=== PATIENT | female | born 1975 | race Caucasian/White ===

== ENCOUNTER 2018-06-08 02:12 | Emergency (ER) | END 2018-06-08 05:29 | disposition home or self-care (01) ==

== ENCOUNTER 2018-06-25 03:56 | Emergency (ER) | END 2018-06-25 05:01 | disposition home or self-care (01) ==

== ENCOUNTER 2018-06-25 05:03 | Emergency (ER) | END 2018-06-25 07:03 | disposition home or self-care (01) ==

== ENCOUNTER 2018-09-03 02:15 | Emergency (ER) | END 2018-09-03 05:17 | disposition home or self-care (01) ==

== ENCOUNTER 2018-12-29 12:38 | Emergency (ER) | payer MEDICAID ==
[~2018-12-29] VITALS: Ht 142.2 cm; Wt 87.5 kg
[~2018-12-29 12:38] MED LIST: HYDR-3980 PO; IBUP-1542 PO; LORA1TAB PO; ONDA4TAB14 PO; OXYC-209 PO
[2018-12-29 13:34] VITALS: Ht 142.2 cm; Wt 87.5 kg
[2018-12-29] MEDS ORDERED: AMOX500C2 PO (15:39)
[2018-12-29] MEDS ORDERED: IBUP-1542 PO (15:39)
--- NOTE | 2018-12-29 15:43 | ERD ---
ER Documentation Chief Complaint Chief Complaint ST, VU X 2 WEEKS HPI 43-year-old female presents with sore throat for last 2 weeks. She has right ear pain as well. She denies any fevers, cough. She was told that she has enlarged tonsils. She has right facial pain as well. She denies teeth grinding. She denies any dental pain. ROS All systems reviewed and are negative except as per history of present illness. Medications Home Meds Active Scripts Ibuprofen* (Motrin*) 600 Mg Tab, 600 MG PO Q6, #20 TAB Prov:MARQUISE ADDISON MD 12/29/18 Amoxicillin* (Amoxicillin*) 500 Mg Cap, 500 MG PO TID for 10 Days, CAP Prov:MARQUISE ADDISON MD 12/29/18 Ondansetron (Ondansetron Odt) 4 Mg Tab.rapdis, 4 MG PO Q6H PRN for NAUSEA AND/OR VOMITING, #10 TAB Prov:MAYE GARCIA MD 09/03/18 Ibuprofen* (Motrin*) 600 Mg Tab, 600 MG PO Q6H PRN for PAIN AND OR ELEVATED TEMP, #30 TAB Prov:MAYE GARCIA MD 09/03/18 Lorazepam* (Lorazepam*) 1 Mg Tablet, 1 MG PO Q8H PRN for ANXIETY, #5 TAB Prov:ELLY GARAY NP 06/25/18 Ondansetron (Ondansetron Odt) 4 Mg Tab.rapdis, 4 MG PO Q6H PRN for NAUSEA AND/OR VOMITING, #10 TAB Prov:ELLY GARAY NP 06/08/18 Oxycodone HCl/Acetaminophen (Percocet 10-325 mg Tablet) 1 Each Tablet, 1 EACH PO Q6 PRN for SEVERE PAIN LEVEL 7-10, #10 TAB Prov:ELLY GARAY NP 06/08/18 Hydrocodone/Acetaminophen ([place] 10-325 Tablet) 1 Each Tablet, 1 TAB PO Q6H PRN for PAIN, #20 TAB Prov:GEO GOLDSTEIN 06/07/18 Allergies Allergies: Coded Allergies: No Known Allergy (Unverified , 06/08/18) PMhx/Soc History of Surgery: Yes (c/section x3) Hx Neurological Disorder: No Hx Respiratory Disorders: No Hx Cardiac Disorders: Yes (htn, dm) Hx Psychiatric Problems: No Hx Miscellaneous Medical Probl: Yes (dm) Hx Alcohol Use: No Hx Substance Use: No Hx Tobacco Use: No FmHx Family History: No diabetes, No coronary disease, No other Physical Exam Vitals Vital Signs Date Temp Pulse Resp B/P (MAP) Pulse Ox O2 O2 Flow FiO2 Time Delivery Rate 12/29/18 98.5 72 18 171/82 100 13:34 (111) Physical Exam Const: No acute distress Head: Atraumatic Eyes: Normal Conjunctiva ENT: Normal External Ears, Nose and Mouth. Gums normal. Positive tenderness in the right TMJ. Positive mild tenderness in the anterior cervical lymph nodes. No swelling, airway patent. Uvula midline. Tonsils 2+ with redness without exudate. Neck: Full range of motion. No meningismus. Resp: Clear to auscultation bilaterally Cardio: Regular rate and rhythm, no murmurs Abd: Soft, non tender, non distended. Normal bowel sounds Skin: No petechiae or rashes Back: No midline or flank tenderness Ext: No cyanosis, or edema Neur: Awake and alert Psych: Normal Mood and Affect Results 24 hrs Presents with right facial pain, sore throat, right ear pain. She is signs of TMJ. She has signs of mild lymphadenitis and possible pharyngitis as well. Patient symptoms may be due to TMJ but given the additional symptoms we will t reat empirically with amoxicillin, ibuprofen, recommendations for GI rest, primary care follow-up and return precautions. She has no evidence of airway obstruction, signs of abscess, perforation, additional concerning signs or symptoms. The patient was stable with no new complaints during the ER course. Clinically, there is no current evidence to suggest meningitis, sepsis, acute abdomen, pneumonia, stroke, acute coronary syndrome, pulmonary embolism, aortic dissection or any other emergent condition appearing to require further evaluation or hospitalization. Patient counseled regarding my diagnostic impression and care plan. Prior to discharge all questions answered. Pt agrees with treatment plan and understands strict return precautions. Pt is instructed to follow up with primary care provider within 24-48 hours. Precautionary instructions provided including instructions to return to the ER if not improving or for any worsening or changing symptoms or concerns. Departure Diagnosis: Primary Impression: Ear pain, right Additional Impression: Sore throat Condition: Stable Patient Instructions: Lymphangitis, Tmj Syndrome Additional Instructions: Cheque otro vez con small doctor primario en el proximo mcdonald or regresa para mas o nueva simptomas. MARQUISE ADDISON MD Dec 29, 2018 15:42
== END 2018-12-29 15:50 | disposition home or self-care (01) ==
LOC: FTE 12:38
DX: H92.01 Otalgia, right ear (principal); J02.9 Acute pharyngitis, unspecified; I10 Essential (primary) hypertension; E11.9 Type 2 diabetes mellitus without complications
CPT/HCPCS: 99283

== ENCOUNTER 2019-01-12 05:31 | Emergency (ER) | payer MEDICAID ==
[~2019-01-12] VITALS: Ht 157.5 cm; Wt 88.5 kg
[~2019-01-12 05:31] MED LIST changes: +AMOX500C2 PO
[2019-01-12 05:40] VITALS: Ht 157.5 cm; Wt 88.5 kg
[2019-01-12] MEDS ORDERED: KETOROLAC 30 MG INJ IV STA (06:25)
[2019-01-12] MEDS ORDERED: SOD CHLORIDE 0.9% 1,000 ML IV STA (06:25)
[2019-01-12] MEDS ORDERED: HYDR-4011 PO (08:03)
[2019-01-12 08:18] VITALS: BP 153/82; PULSE 66; RESP 18
--- NOTE | 2019-01-12 09:07 | ERD ---
ER Documentation Chief Complaint Chief Complaint VU and face pain x 3 weeks HPI 33-year-old female complaining of right-sided jaw pain with headache. Patient states is been going on intermittently for the last 6 weeks. She has pain with chewing. No trouble swallowing. No fevers. Is taking ibuprofen with mild alleviation of symptoms. Denies any vomiting. Has mild dizziness. Has also headache with no visual changes. Denies any recent traumatic injuries. Medical history is diabetes. NKDA. Surgical history . Social history denies ROS All systems reviewed and are negative except as per history of present illness. Medications Home Meds Active Scripts Hydrocodone/Acetaminophen ([place] 5-325 Tablet) 1 Each Tablet, 1 TAB PO Q6H PRN for PAIN, #7 TAB Prov:MARA ECHEVARRIA PA-C 01/12/19 Ibuprofen* (Motrin*) 600 Mg Tab, 600 MG PO Q6, #20 TAB Prov:MARQUISE ADDISON MD 12/29/18 Amoxicillin* (Amoxicillin*) 500 Mg Cap, 500 MG PO TID for 10 Days, CAP Prov:MARQUISE ADDISON MD 12/29/18 Ondansetron (Ondansetron Odt) 4 Mg Tab.rapdis, 4 MG PO Q6H PRN for NAUSEA AND/OR VOMITING, #10 TAB Prov:MAYE GARCIA MD 09/03/18 Ibuprofen* (Motrin*) 600 Mg Tab, 600 MG PO Q6H PRN for PAIN AND OR ELEVATED TEMP, #30 TAB Prov:MAYE GARCIA MD 09/03/18 Lorazepam* (Lorazepam*) 1 Mg Tablet, 1 MG PO Q8H PRN for ANXIETY, #5 TAB Prov:ELLY GARAY NP 06/25/18 Ondansetron (Ondansetron Odt) 4 Mg Tab.rapdis, 4 MG PO Q6H PRN for NAUSEA AND/OR VOMITING, #10 TAB Prov:ELLY GARAY NP 06/08/18 Oxycodone HCl/Acetaminophen (Percocet 10-325 mg Tablet) 1 Each Tablet, 1 EACH PO Q6 PRN for SEVERE PAIN LEVEL 7-10, #10 TAB Prov:ELLY GARAY NP 06/08/18 Hydrocodone/Acetaminophen ([place] 10-325 Tablet) 1 Each Tablet, 1 TAB PO Q6H PRN for PAIN, #20 TAB Prov:GEO GOLDSTEIN 06/07/18 Allergies Allergies: Coded Allergies: No Known Allergy (Unverified , 06/08/18) PMhx/Soc History of Surgery: Yes (c/section x3) Hx Neurological Disorder: No Hx Respiratory Disorders: No Hx Cardiac Disorders: Yes (htn, dm) Hx Psychiatric Problems: No Hx Miscellaneous Medical Probl: Yes (dm) Hx Alcohol Use: No Hx Substance Use: No Hx Tobacco Use: No Smoking Status: Never smoker FmHx Family History: No diabetes, No coronary disease, No other Physical Exam Vitals Vital Signs Date Temp Pulse Resp B/P (MAP) Pulse Ox O2 O2 Flow FiO2 Time Delivery Rate 01/12/19 98.4 66 18 153/82 100 Room Air 08:18 (105) 01/12/19 98.3 70 16 154/88 98 05:40 (110) Physical Exam GENERAL: The patient is well-appearing, well-nourished, in no acute distress HEENT: Atraumatic. Conjunctivae are pink. Pupils equal, round, and reactive to light. There is no scleral icterus. Tympanic membranes clear bilaterally. Oropharynx clear. NECK: C-spine is soft and supple. There is no meningismus. There is no cervical lymphadenopathy. CHEST: Clear to auscultation bilaterally. There are no rales, wheezes or rhonchi. HEART: Regular rate and rhythm. No murmurs, clicks, rubs or gallops. EXTREMITIES: Equal pulses bilaterally. There is no peripheral clubbing, cyanosis or edema. No focal swelling or erythema. Full range of motion. Grossly neurovascularly intact. NEUROLOGIC: Alert and oriented. Cranial nerves II through XII intact. Motor strength in all 4 extremities with 5 out of 5 strength. Sensation grossly intact. Normal speech and gait. Babinski negative. DTR 2+ throughout. SKIN: There is no apparent rash or petechiae. The skin is warm and dry. Result Diagram: 01/12/19 0719 01/12/19 0719 Results 24 hrs Laboratory Tests Test 01/12/19 07:19 White Blood Count 5.7 10^3/ul Red Blood Count 4.15 10^6/ul Hemoglobin 11.5 g/dl Hematocrit 36.4 % Mean Corpuscular Volume 87.7 fl Mean Corpuscular Hemoglobin 27.7 pg Mean Corpuscular Hemoglobin Concent 31.6 g/dl Red Cell Distribution Width 14.4 % Platelet Count 371 10^3/UL Mean Platelet Volume 10.3 fl Immature Granulocytes % 0.200 % Neutrophils % 51.7 % Lymphocytes % 36.6 % Monocytes % 8.3 % Eosinophils % 2.8 % Basophils % 0.4 % Nucleated Red Blood Cells % 0.0 /100WBC Immature Granulocytes # 0.010 10^3/ul Neutrophils # 2.9 10^3/ul Lymphocytes # 2.1 10^3/ul Monocytes # 0.5 10^3/ul Eosinophils # 0.2 10^3/ul Basophils # 0.0 10^3/ul Nucleated Red Blood Cells # 0.0 10^3/ul Urine Color STRAW Urine Clarity CLEAR Urine pH 6.0 Urine Specific [place] 1.005 Urine Ketones NEGATIVE mg/dL Urine Nitrite NEGATIVE mg/dL Urine Bilirubin NEGATIVE mg/dL Urine Urobilinogen NEGATIVE mg/dL Urine Leukocyte Esterase NEGATIVE Dilan/ul Urine Microscopic RBC 69 /HPF Urine Microscopic WBC 7 /HPF Urine Hemoglobin 3+ mg/dL Urine Glucose NEGATIVE mg/dL Urine Total Protein NEGATIVE mg/dl Sodium Level 140 mmol/L Potassium Level 5.0 mmol/L Chloride Level 106 mmol/L Carbon Dioxide Level 26 mmol/L Anion Gap 8 Blood Urea Nitrogen 13 mg/dl Creatinine 0.53 mg/dl Est Glomerular Filtrat Rate mL/min > 60 mL/min Glucose Level 200 mg/dl Calcium Level 10.0 mg/dl Total Bilirubin 0.4 mg/dl Direct Bilirubin 0.00 mg/dl Indirect Bilirubin 0.4 mg/dl Aspartate Amino Transf (AST/SGOT) 15 IU/L Alanine Aminotransferase (ALT/SGPT) 18 IU/L Alkaline Phosphatase 59 IU/L Total Protein 8.0 g/dl Albumin 4.4 g/dl Globulin 3.60 g/dl Albumin/Globulin Ratio 1.22 Serum HCG, Qualitative NEGATIVE Current Medications Medications Dose Sig/Cornelius Start Time Status Last (Trade) Ordered Route PRN Stop Time Admin Dose Reason Admin Sodium 1,000 ml @ Q1H STAT 01/12/19 DC 01/12/19 Chloride 1,000 mls/hr IV 06:25 4/2/19 07:40 07:24 Ketorolac 30 mg ONCE STAT 01/12/19 DC 01/12/19 Tromethamine IV 06:25 01/12/19 08:11 (Toradol) 06:28 Procedures/MDM DIAGNOSTIC IMAGING REPORT Patient: KVNG SMALL : 1975 Age: 43 Sex: F MR #: [id number] DOS: 01/12/19624 Ordering MD: JERRICA ECHEVARRIA PA-C Location: [facility] Room/Bed: PROCEDURE: CT Brain without contrast. CLINICAL INDICATION: Headaches TECHNIQUE: CT scan of the brain was performed on a multidetector high- resolution CT scan. Axial imaging was obtained of the brain without contrast administration. Coronal and sagittal reformatted images were obtained from the axial source images. Standard CT scan of the head without contrast protocols were performed. The total exam CTDI equals 39.64 mGy and the total exam DLP equals 634.23 mGy- cm. One or more of the following dose reduction techniques were used: - Automated exposure control. - Adjustment of the mA and/or kV according to patient size. Use of iterative reconstruction technique. Dicom images are available COMPARISON: None. FINDINGS: The ventricular system and peripheral CSF spaces are unremarkable. No evidence of intracranial masses hemorrhages or midline shift. 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 Baker-white matter differentiation is unremarkable. Visualized paranasal sinuses and ma stoids are unremarkable. The bones of the calvarium are intact. IMPRESSION: 1. No evidence of intracranial masses hemorrhages midline shift. 2. 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 DIAGNOSTIC IMAGING REPORT Patient: VKNG SMALL : 1975 Age: 43 Sex: F MR #: [id number] DOS: 01/12/19624 Ordering MD: JERRICA ECHEVARRIA PA-C Location: E Room/Bed: PROCEDURE: XR temporomandibular joint. CLINICAL INDICATION: Jaw pain TECHNIQUE: Frontal and lateral views of the temporomandibular joints obtained in open and closed position. COMPARISON: None FINDINGS: The temporomandibular joints appear in satisfactory position on closed mouth views. There is appropriate anterior translation of both mandibular condyles on open-mouth views. Imaged bones are otherwise intact. Superficial soft tissues are unremarkable. IMPRESSION: No acute findings. MDM: 43-year-old female presenting with pain to her right jaw space. I have low suspicion for intracranial hemorrhage or neuro deficit. I have low suspicion for dental injury or infection. I have low suspicion for facial fracture disl ocation. Patient has chronic TMJ pain and is recommended to follow-up with dentist. Patient is told if symptoms change or worsen to return immediately to the ER. All questions answered at discharge Departure Diagnosis: Primary Impression: TMJ (temporomandibular joint disorder) Additional Impression: Headache Condition: Stable Patient Instructions: Self-Care for Headaches, Tmj Syndrome Referrals: [facility] YOU HAVE RECEIVED A MEDICAL SCREENING EXAM AND THE RESULTS INDICATE THAT YOU DO NOT HAVE A CONDITION THAT REQUIRES URGENT TREATMENT IN THE EMERGENCY DEPARTMENT. FURTHER EVALUATION AND TREATMENT OF YOUR CONDITION CAN WAIT UNTIL YOU ARE SEEN IN YOUR DOCTORS OFFICE WITHIN THE NEXT 1-2 DAYS. IT IS YOUR RESPONSIBILITY TO MAKE AN APPOINTMENT FOR FOLOW-UP CARE. IF YOU HAVE A PRIMARY DOCTOR --you should call your primary doctor and schedule an appointment IF YOU DO NOT HAVE A PRIMARY DOCTOR YOU CAN CALL OUR PHYSICIAN REFERRAL HOTLINE AT IF YOU CAN NOT AFFORD TO SEE A PHYSICIAN YOU CAN CHOSE FROM THE FOLLOWING [facility] [address] [facility] [address] [facility] [facility] [address] [facility] [address] [facility] [address] [facility]. [facility] [address] ([facility] walk in clinic) Additional Instructions: FOLLOW UP WITH YOUR PRIMARY CARE PHYSICIAN TOMORROW.Return to this facility if you are not improving as expected. MARA ECHEVARRIA PA-C Jan 12, 2019 09:07
== END 2019-01-12 08:30 | disposition home or self-care (01) ==
LOC: FTE 05:31
DX: M26.601 Right temporomandibular joint disorder, unspecified (principal); I10 Essential (primary) hypertension; E11.9 Type 2 diabetes mellitus without complications
CPT/HCPCS: 70330; 70450; 80053; 81001; 84703; 85025; 96361; 96374; J1885; J7030; Z7502

== ENCOUNTER 2019-02-18 08:20 | Emergency (ER) | payer MEDICAID ==
[~2019-02-18] VITALS: Ht 157.5 cm; Wt 90.1 kg
[~2019-02-18 08:20] MED LIST changes: +HYDR-4011 PO
[2019-02-18 08:22] VITALS: BP 137/88; PULSE 82; RESP 20; Ht 157.5 cm; Wt 90.1 kg
[2019-02-18] MEDS ORDERED: KETOROLAC 30 MG INJ IV STA (08:50)
[2019-02-18] MEDS ORDERED: SOD CHLORIDE 0.9% 1,000 ML IV STA (08:50)
[2019-02-18] MEDS ORDERED: ONDANSETRON 4 MG INJ IV STA (08:50)
[2019-02-18] MEDS ORDERED: NITR-58 PO (09:11)
--- NOTE | 2019-02-18 11:49 | ERD ---
ER Documentation Chief Complaint Chief Complaint Pt c/o pain urination, frequency and B flank pain X 4 days HPI 43-year-old female presenting with dysuria and urinary frequency. Patient st ates that this is been going on for the last 4 days. She has some mild suprapubic tenderness and urinary frequency. There is burning with urination. Patient had noted some mild hematuria. No fevers. Has not taken medications for symptoms. Medical history is diabetes [id number]. Hypertension. NKDA. Surgical history . Social history denies ROS All systems reviewed and are negative except as per history of present illness. Medications Home Meds Active Scripts Nitrofurantoin Monohyd Macrocr* (Macrobid*) 100 Mg Capsr, 100 MG PO BID for 14 Days, CAP Prov:MARA ECHEVARRIA PA-C 02/18/19 Hydrocodone/Acetaminophen ([place] 5-325 Tablet) 1 Each Tablet, 1 TAB PO Q6H PRN for PAIN, #7 TAB Prov:MARA ECHEVARRIA PA-C 01/12/19 Ibuprofen* (Motrin*) 600 Mg Tab, 600 MG PO Q6, #20 TAB Prov:MARQUISE ADDISON MD 12/29/18 Amoxicillin* (Amoxicillin*) 500 Mg Cap, 500 MG PO TID for 10 Days, CAP Prov:MARQUISE ADDISON MD 12/29/18 Ondansetron (Ondansetron Odt) 4 Mg Tab.rapdis, 4 MG PO Q6H PRN for NAUSEA AND/OR VOMITING, #10 TAB Prov:MAYE GARCIA MD 09/03/18 Ibuprofen* (Motrin*) 600 Mg Tab, 600 MG PO Q6H PRN for PAIN AND OR ELEVATED TEMP, #30 TAB Prov:MAYE GARCIA MD 09/03/18 Lorazepam* (Lorazepam*) 1 Mg Tablet, 1 MG PO Q8H PRN for ANXIETY, #5 TAB Prov:ELLY GARAY NP 06/25/18 Ondansetron (Ondansetron Odt) 4 Mg Tab.rapdis, 4 MG PO Q6H PRN for NAUSEA AND/OR VOMITING, #10 TAB Prov:ELLY GARAY NP 06/08/18 Oxycodone HCl/Acetaminophen (Percocet 10-325 mg Tablet) 1 Each Tablet, 1 EACH PO Q6 PRN for SEVERE PAIN LEVEL 7-10, #10 TAB Prov:JARRODELLY MAE AdielChristiano INFANTE 06/08/18 Hydrocodone/Acetaminophen ([place] 10-325 Tablet) 1 Each Tablet, 1 TAB PO Q6H PRN for PAIN, #20 TAB Prov:GEO GOLDSTEIN 06/07/18 Allergies Allergies: Coded Allergies: No Known Allergy (Unverified , 06/08/18) PMhx/Soc History of Surgery: Yes (C/SECTION X3) Hx Neurological Disorder: No Hx Respiratory Disorders: No Hx Cardiac Disorders: Yes (HTN, DM) Hx Psychiatric Problems: No Hx Miscellaneous Medical Probl: Yes (dm) Hx Alcohol Use: No Hx Substance Use: No Hx Tobacco Use: No Smoking Status: Never smoker FmHx Family History: No diabetes, No coronary disease, No other Physical Exam Vitals Vital Signs Date Temp Pulse Resp B/P (MAP) Pulse Ox O2 O2 Flow FiO2 Time Delivery Rate 02/18/19 97.6 82 20 137/88 100 08:22 (104) Physical Exam GENERAL: The patient is well-appearing, well-nourished, in no acute distress HEENT: Atraumatic. Conjunctivae are pink. Pupils equal, round, and reactive to light. There is no scleral icterus. Tympanic membranes clear bilaterally. Oropharynx clear. NECK: C-spine is soft and supple. There is no meningismus. There is no cervical lymphadenopathy. CHEST: Clear to auscultation bilaterally. There are no rales, wheezes or rhonchi. HEART: Regular rate and rhythm. No murmurs, clicks, rubs or gallops. ABDOMEN: Active bowel sounds. No distention. No organomegaly. Mild tenderness palpation of the suprapubic region but is not lateralized to right or left lower quadrant. Results 24 hrs Laboratory Tests Test 02/18/19 08:48 Bedside Urine pH (LAB) 6.0 Bedside Urine Protein (LAB) Negative Bedside Urine Glucose (UA) Negative Bedside Urine Ketones (LAB) Negative Bedside Urine Blood Negative Bedside Urine Nitrite (LAB) Negative Bedside Urine Leukocyte Esterase (L Negative POC Beta HCG, Qualitative NEGATIVE Current Medications Medications Dose Sig/Cornelius Start Time Status Last (Trade) Ordered Route PRN Stop Time Admin Dose Reason Admin Sodium 1,000 ml @ Q1H STAT 02/18/19 DC 02/18/19 Chloride 1,000 mls/hr IV 08:50 02/18/19 09:06 09:49 Ondansetron 4 mg ONCE STAT 02/18/19 DC 02/18/19 HCl (Zofran IV 08:50 02/18/19 09:06 Inj) 08:52 Ketorolac 30 mg ONCE STAT 02/18/19 DC 02/18/19 Tromethamine IV 08:50 02/18/19 09:07 (Toradol) 08:52 Procedures/MDM MDM: 43-year-old female presenting with dysuria and urinary symptoms. Patient's urine appears to be clean however she is having clinical signs of urinary tract infection. I have low suspicion for pelvic abnormality or acute abdominal emergency. I will treat patient symptomatically for urinary tract infection. Patient is not complaining of vaginal itching or dyspareunia so I do not feel that patient has concern for PID. Patient is discharged with strict your precautions and supportive medications. Patient is told if symptoms change or worsen to return immediately to the ER. All questions answered at discharge Departure Diagnosis: Primary Impression: Dysuria Condition: Stable Patient Instructions: Dysuria Referrals: [facility] YOU HAVE RECEIVED A MEDICAL SCREENING EXAM AND THE RESULTS INDICATE THAT YOU DO NOT HAVE A CONDITION THAT REQUIRES URGENT TREATMENT IN THE EMERGENCY DEPARTMENT. FURTHER EVALUATION AND TREATMENT OF YOUR CONDITION CAN WAIT UNTIL YOU ARE SEEN IN YOUR DOCTORS OFFICE WITHIN THE NEXT 1-2 DAYS. IT IS YOUR RESPONSIBILITY TO MAKE AN APPOINTMENT FOR FOLOW-UP CARE. IF YOU HAVE A PRIMARY DOCTOR --you should call your primary doctor and schedule an appointment IF YOU DO NOT HAVE A PRIMARY DOCTOR YOU CAN CALL OUR PHYSICIAN REFERRAL HOTLINE AT IF YOU CAN NOT AFFORD TO SEE A PHYSICIAN YOU CAN CHOSE FROM THE FOLLOWING [facility] [address] [facility] [address] [facility] [facility] [address] [facility] [address] [facility] [address] [facility]. [facility]. [address] Additional Instructions: FOLLOW UP WITH YOUR PRIMARY CARE PHYSICIAN TOMORROW.Return to this facility if you are not improving as expected. MARA ECHEVARRIA PA-C February 18, 2019 11:49
== END 2019-02-18 10:00 | disposition home or self-care (01) ==
LOC: FTE 08:20
DX: R30.0 Dysuria (principal); I10 Essential (primary) hypertension; E11.9 Type 2 diabetes mellitus without complications
CPT/HCPCS: 81003; 81025; 96361; 96374; 96375; J1885; J2405; J7030; Z7502